=== PATIENT | male | born 1980 | race Caucasian/White ===

== ENCOUNTER 2016-10-07 20:38 | Emergency (ER) | payer OTHER ==
[2016-10-07 20:44] VITALS: RESP 16; TEMP 98.6; O2SAT 94
[2016-10-07] MEDS ORDERED: AMOXICILLIN/CLAVULANATE POT 875/125 MG TAB PO ONE (21:03)
--- NOTE | 2016-10-07 21:28 | EDPHY ---
H & P Stated Complaint: pt's cat bit B hands this afternoon HPI/ROS: Chief complaint: Bit by his cat on both hands History of present illness: This is a 36-year-old male who presents to the emergency department for evaluation after being being bit by his cat on both hands. He states this occurred earlier today. He reports his cats are indoor cats, they are healthy and up-to-date on immunizations. There is pain at the site of bites. Denies other associated signs or symptoms at this time including no redness, warmth. No fevers. Further no report of abnormal coolness or paresthesias. He is still moving the fingers and wrist well. His tetanus is up-to-date. - Personal History Current Tetanus/Diphtheria Vaccine: Yes Current Tetanus Diphtheria and Acellular Pertussis (TDAP): Yes - Medical/Surgical History Hx Asthma: No Hx Chronic Respiratory Disease: No Hx Diabetes: No Hx Cardiac Disease: No Hx Renal Disease: No Hx Cirrhosis: No Hx Alcoholism: No Hx HIV/AIDS: No Hx Splenectomy or Spleen Trauma: No Other PMH: denies - Social History Smoking Status: Former smoker - Physical Exam Exam: General: Alert, nontoxic Skin: Small bite wounds in scratches to both hands. No repairable lesions. Musculoskeletal: Patient moving all digits in all joints in all tovar in both hands in all wrist in all tovar bilaterally. Vascular: Capillary refill brisk in all digits of both hand. Radial pulses 2+. Neurologic: Sensation appears intact in all digits in the hands bilaterally. Constitutional: Initial Vital Signs Temperature (C) 37 C 10/07/16 20:39 Heart Rate 60 10/07/16 20:39 Respiratory Rate 16 10/07/16 20:39 Blood Pressure 114/70 10/07/16 20:39 O2 Sat (%) 94 10/07/16 20:39 O2 Delivery Mode Room Air Allergies/Adverse Reactions: No Known Allergies Allergy (Unverified 10/07/16 20:44) Home Medications: Medication Instructions Recorded Amoxicillin/Clavulanate Pot 875 mg PO BID #14 tab 10/07/16 [Augmentin 875 MG TAB (*)] Medical Decision Making - Diagnostics Imaging Results: Imaging Impressions Hand X-Ray 10/07/16 21:03 Impression: No fracture. Hand X-Ray 10/07/16 21:03 Impression: No fracture. Imaging: I viewed and interpreted images myself ED Course/Re-evaluation: Patient is seen under the supervision of my secondary supervising physician Dr. Jaime Toledo. Patient presents to the emergency department after being bit on his hands by his cat. His cats are reported as healthy and up-to-date on their immunizations. Patient's tetanus is up-to-date. Patient's hands are neurovascularly intact. He has good musculoskeletal control of them. X-rays are obtained with no retained foreign bodies. Patient is started on Augmentin. Patient is discharged home, home care is discussed including the use of antibiotics. Patient is asked to follow up with a hand doctor for recheck. Referral information is given. Return precautions are given. Patient voiced understanding and agreement with plan. - Data Points Medications Given: Discontinued Medications Amoxicillin/Clavulanate Potassium (Augmentin 875mg) 875 mg PO EDNOW ONE PRN Reason: Protocol Stop: 10/07/16 21:04 Last Admin: 10/07/16 21:26 Dose: 875 mg Departure - Departure Disposition: Home, Routine, Self-Care Clinical Impression: Cat bite of hand Qualifiers: Encounter type: initial encounter Laterality: unspecified laterality Qualified Code(s): S61.459A - Open bite of unspecified hand, initial encounter; W55.01XA - Bitten by cat, initial encounter Condition: Good Instructions: Animal Bite (ED), Acute Wounds (ED) Additional Instructions: Follow-up with a hand doctor for recheck If symptoms worsen or new symptoms develop return to the emergency room for recheck Referrals: Dee Dee Zarate MD [Medical Doctor] - As per Instructions Prescriptions: Amoxicillin/Clavulanate Pot [Augmentin 875 MG TAB (*)] 875 mg PO BID #14 tab
[2016-10-07 21:57] VITALS: BP 113/73; PULSE 70
== END 2016-10-07 21:54 | disposition home or self-care (01) ==
DX: S61.451A Open bite of right hand, initial encounter (principal); S61.452A Open bite of left hand, initial encounter; Z87.891 Personal history of nicotine dependence; W55.01XA Bitten by cat, initial encounter

== ENCOUNTER 2018-11-29 00:08 | Emergency (ER) | payer OTHER | END 2018-11-29 02:48 | disposition home or self-care (01) ==